=== PATIENT | female | born 1950 | race Caucasian/White ===

== ENCOUNTER → 2016-11-12 | Outpatient (CLI) | payer OTHER ==
[~2016-11-12] VITALS: Ht 162.6 cm; Wt 104.3 kg
[~2016-11-12] MED LIST: AMLODIPINE BESY10 MG PO; CENTRUM SILVER1 EAC4 PO; CYCLOBENZAPRINE5 MG PO; FOSINOPRIL SODI40 MG PO; GLIMEPIRIDE4 MG PO; OS-CAL 500+D31 EACH PO; PRAVASTATIN SOD80 MG PO; SERTRALINE HCL50 MG PO; TEMOVATE 0.05%30 GM TP; TRADJENTA5 MG PO; TRAMADOL HCL50 MG PO
[2016-11-12 09:27] LABS: POINT-OF-CARE METER ID UU13113694
[2016-11-12 09:49] LABS: POINT-OF-CARE METER ID UU13113694
[2016-11-12 10:01] LABS: POINT-OF-CARE METER ID UU13113694
[2016-11-12 10:50] LABS: POINT-OF-CARE METER ID UU13113819; POINT-OF-CARE USER ID ADMSLT55
[2016-11-12 11:54] LABS: POINT-OF-CARE METER ID UU13113819
== END | disposition home or self-care (01) ==
LOC: AMB 08:19
PROVIDERS: Internal Medicine
DX: R13.10 Dysphagia, unspecified (principal); K22.4 Dyskinesia of esophagus; Z12.11 Encounter for screening for malignant neoplasm of colon; D12.5 Benign neoplasm of sigmoid colon; K57.90 Diverticulosis of intestine, part unspecified, without perforation or abscess without bleeding; K64.9 Unspecified hemorrhoids; I10 Essential (primary) hypertension
CPT/HCPCS: 82948; 88305; 93005; J2250; J3010